=== PATIENT | male | born 1945 | race Caucasian/White ===

== ENCOUNTER 2024-04-22 15:02 | Emergency (ER) | payer MEDICARE, SELFPAY ==
[2024-04-22 15:03] VITALS: BP 156/74; PULSE 88; TEMP 36.6; O2SAT 98; BMI 38.4
--- NOTE | 2024-04-22 15:34 | ED_ITS ---
HPI - Male Genitourinary General Chief complaint: Urogenital-Male Stated complaint: UTI Time Seen by Provider: 04/22/24 15:08 Source: patient Mode of arrival: ambulance History of Present Illness HPI Narrative: The patient is coming to us from a correction facility after he recently had a fracture of his pelvis as well as a left hip fracture, the patient is at bedrest and apparently he also had a Estrada catheter that was removed Wednesday almost 5 days ago, since then the patient was treated initially for possible UTI but he mentioned he only have irritation at the tip of the penis only when urinating The patient mentioned that this started after the Estrada catheter was removed No other complaint of abdominal pain nausea vomiting fever or chills Related Data Previous Rx's ?Medication ?Instructions ?Recorded nystatin 100,000 unit/gram topical 1 applic topical DAILY #60 grams 04/22/24 powder Allergies Allergy/AdvReac Type Severity Reaction Status Date / Time No Known Drug Allergies Allergy Verified 04/22/24 15:07 Review of Systems ROS Status of ROS 10 or more systems reviewed and unremark able except as noted in history and below Exam Narrative Exam Narrative: Nurses notes and vital signs reviewed and patient is not hypoxic. General: Well-appearing and in no apparent distress. Skin: Warm, dry, no pallor noted. No rash. Head: Normocephalic, atraumatic. Neck: Supple, non-tender. Eye: Pupils are equal, round and EOMI. No scleral icterus. Ears, Nose, Mouth, and Throat: TM are clear, no nasal mucosal hypertrophy. Oral mucosa is moist, no posterior oropharynx erythema, uvula is mid-line Cardiovascular: Regular Rate and Rhythm without murmur, gallop or rub. Respiratory: No accessory muscle use or respiratory distress. Lungs are clear to auscultation, no wheezing, rales or rhonchi Chest Wall: no tenderness Back: No midline thoracic or lumbar vertebral tenderness. No CVA tenderness Musculoskeletal: normal ROM, no calf or popliteal tenderness, no lower extremity edema/swelling GI: Abdomen is soft, non-distended. Normal bowel sounds. No masses appreciated. No tenderness to palpation. No rebound, guarding, or rigidity noted. Neurological: A&O x4. No cranial nerve dysfunction observed. Perineal examination The patient scrotal and perineal examination shows mild irritation of the skin of the tip of the penis specially that the patient have the area wet and he was wearing a depends and he had his scrotum in contact with wet surface for long time The patient does not have any open wound no lesions no rashes and no bleeding or any irritation that is noted on examination of the scrotum or the testicles the patient mentioned that there is only irritation at the tip of the penis but the re is no active symptoms on exam Constitutional Vital Signs, click to edit/add: Last Vital Signs Temp 97.8 F 04/22/24 15:03 Pulse 88 04/22/24 15:03 Resp 16 04/22/24 15:03 BP 156/74 H 04/22/24 15:03 Pulse Ox 98 04/22/24 15:03 O2 Del Method Room Air 04/22/24 15:03 Course Vital Signs Vital signs: Vital Signs Temperature 97.8 F 04/22/24 15:03 Pulse Rate 88 04/22/24 15:03 Respiratory Rate 16 04/22/24 15:03 Blood Pressure 156/74 H 04/22/24 15:03 Pulse Oximetry 98 04/22/24 15:03 Oxygen Delivery Method Room Air 04/22/24 15:03 Temperature 97.8 F 04/22/24 15:03 Pulse Rate 88 04/22/24 15:03 Respiratory Rate 16 04/22/24 15:03 Blood Pressure 156/74 H 04/22/24 15:03 Pulse Oximetry 98 04/22/24 15:03 Oxygen Delivery Method Room Air 04/22/24 15:03 MDM - Male Genitourinary MDM Narrative Medical decision making narrative: The patient already treated for possible UTI and he has just finished his antibiotic yesterday, the way that the patient explaining his symptoms and pain and the fact that he have irritation of the penis only since the Estrada catheter was removed Wednesday This mostly secondary to irritation from the continuous exposure to moisture in addition to the irritation from the traumatization of putting a Estrada catheter possibly too I did explain to the patient after applying lidocaine there that helped controlling his symptoms Right now the patient to make sure that he is going to stay clean and dry he will be provided with nystatin powder to go with him to the correction facility The instruction are to keep an eye on the symptoms and there should be improvement within 24 to 48 hours Because of the fact that the patient is laying in his back and he is not in visualization of the area , we need to make sure that the patient will be monitored closely The patient to come back in case of any new symptoms and to follow-up with his doctor as outpatient The patient is to follow up with primary care physician in next 2-3 days or to return to the emergency department should any of the signs or symptoms worsen or new symptoms develop. The patient agrees with the following Diagnosis and Treatment plan and the patient will be discharged home. Discharge Plan Discharge Stand Alone Forms: Work/School Release, Portal Instructions Chief Complaint: Urogenital-Male Clinical Impression: Irritation of penis Patient Disposition: Home, Self-Care Time of Disposition Decision: 16:53 Condition: Good Prescriptions / Home Meds: New nystatin 100,000 unit/gram powder 1 applic topical DAILY Qty: 60 0RF Print Language: French Instructions: Yeast Infection (ED) Referrals: SELAM MORAN DO [Primary Care Provider] - 1 week
[2024-04-22] MEDS: LIDOCAINE 2% JELLY 10 ML UR (15:54)
[2024-04-22 16:59] VITALS: BP 166/82; PULSE 78; O2SAT 100
== END 2024-04-22 17:18 | disposition home or self-care (01) ==
PROVIDERS: Emergency Provider Emergency Medicine; PCP Family Medicine
DX: N48.9 Disorder of penis, unspecified (principal); Z87.81 Personal history of (healed) traumatic fracture
CPT/HCPCS: 51798; 99283